=== PATIENT | male | born 1985 | race Hispanic/Latino ===

== ENCOUNTER 2020-12-16 12:03 | Inpatient (IN) | payer SELFPAY ==
[~2020-12-16 12:03] MED LIST: Iopamidol-370 76% 500 ML 1 ML ONE
[2020-12-16] MEDS ORDERED: Ondansetron PF 4 MG/2 ML Vial ONE (12:42)
[2020-12-16] MEDS ORDERED: Morphine 4 MG/ML VIAL ONE ×2 (12:48→14:33)
[2020-12-16 13:22] LABS: Hemoglobin 17.8 g/dL (14.0-18.0); Mean Corpuscular HGB CONC 37.1 g/dL (32.0-36.0); Mean Corpuscular Hemoglobin 32.7 pg (27.0-31.0); Mean Corpuscular Volume 88.1 fL (78.0-98.0); RBC Distribution Width 13.2 % (11.5-14.5); Red Blood Cell (RBC) Count 5.45 mill/uL (4.70-6.10); White Blood Cell (WBC) Count 16.8 thou/uL (4.8-10.8)
[2020-12-16 13:31] LABS: Band 21 % (5-11); Large Platelets SLIGHT; Lymphocytes 8 % (21-51); MDiff Complete? YES; Mean Platelet Volume 11.1 fL (7.4-10.4); Metamyelocyte 1 % (0-0); Monocytes 3 % (0-10); Neutrophil 67 % (42-75); Platelet Count 50 thou/uL (130-400); Platelet Morphology Comment Appears Decreased; RBC Morphology Normal
[2020-12-16] MEDS ORDERED: Piperacillin/Tazobactam 4.5 GM VIAL ONE (13:44)
--- NOTE | 2020-12-16 13:52 | CT ---
CT Abdomen Pelvis W Con: 12/16/2020 1:14 PM CLINICAL INFORMATION: Nausea vomiting and abdominal pain COMPARISON: Abdominal ultrasound 07/07/2020 TECHNIQUE: Multiple contiguous axial images were obtained and a CT of the abdomen and pelvis with IV contrast. C oronal and sagittal reformats were performed. FINDINGS: Lower Chest: within normal limits. Abdomen: Liver: Diffuse fatty liver Bile Ducts: Normal caliber. Gallbladder: No calcified gallstones. Normal caliber wall. Pancreas: Stranding changes are seen surrounding the pancreas consistent with acute pancreatitis. The stranding changes extend into the mesentery of the bowel. Normal enhancement of the pancreatic parenchyma is seen without evidence of necrosis. Spleen: within normal limits. Adrenals: within normal limits. Kidneys: within normal limits. Pelvis: Reproductive Organs: No pelvic masses. Ureters: within normal limits. Bladder: within normal limits. Peritoneum: A small amount of free fluid is seen in the pelvis. No free air. Bowel: Normal caliber. Mesentery and Retroperitoneum: Mildly prominent peripancreatic lymph nodes are seen. No enlarged retr operitoneal lymph nodes. Vessels: Normal. Abdominal Wall: within normal limits. Bones: Within normal limits IMPRESSION: 1. Acute pancreatitis 2. Fatty liver
[2020-12-16 13:56] LABS: Bilirubin 1+ (Negative); Blood, Urine Negative (Negative); Glucose, Urine (Dipstick) Normal (Negative); Ketone, Urine Negative (Negative); Leukocyte Negative Leu/uL (Negative); Nitrite Negative (Negative); Protein, Urine (Dipstick) 70 mg/dL (Neg-Trace); Specific Gravity, Urine 1.032 (1.002-1.036); Urobilinogen Normal mg/dL (Less than 2); pH, Urine 5.5 (5.0-9.0)
[2020-12-16 14:03] LABS: Clarity Hazy (Clear)
[2020-12-16 14:05] LABS: Bacteria/HPF Rare-Few HPF (None Seen); RBC/HPF 0-3 HPF (0-3); Squamous Epithelial 0-3 HPF (0-3); Transitional Epithelial 0-3 HPF (None Seen); WBC/HPF 0-3 HPF (0-3)
[2020-12-16] MEDS ORDERED: Morphine 4 MG/ML VIAL SLOW IVP PRN (14:23)
[2020-12-16] MEDS ORDERED: Vancomycin 1.5 GRAM/300 ML BAG 1.5 GM in Premix Bag 1 BAG IVPB SCH (14:30)
[2020-12-16] MEDS ORDERED: Sodium Chloride 0.9% 2,000 ML IV SCH (14:30)
--- NOTE | 2020-12-16 15:06 | ULT ---
US Gallbladder RUQ: 12/16/2020 1:59 PM CLINICAL HISTORY: Abdominal pain. STUDY: Limited right upper quadrant ultrasound of abdomen. COMPARISON: CT abdomen/pelvis 12/16/2020 FINDINGS: Liver: Size: Normal. Echogenicity: Hyperechoic consistent with hepatic steatosis. Contour: Smooth. Mass: None. A small amount of free fluid is seen in the abdomen. Bile ducts: No intrahepatic or extrahepatic biliary dilatation. Common bile duct measures 5 mm. Gallbladder: Normal. Pancreas: Not well visualized Right kidney: No pelvicalyceal dilatation. Right kidney measuring 11.2 cm in length. IMPRESSION: 1. Fatty liver 2. Trace ascites 3. The pancreas was not well visualized on this exam
[2020-12-16] MEDS ORDERED: HYDROmorphone 0.5 MG/0.5 ML SYRINGE ONE (15:45)
[2020-12-16] MEDS ORDERED: HUMULIN R 100 UNITS in Sodium Chloride 0.9% 100 ML IVPB SCH (16:15)
[2020-12-16] MEDS ORDERED: Dextrose 5%-Lactated Ringers 1,000 ML IV SCH (16:15)
[2020-12-16] MEDS ORDERED: Dextrose 5% in Water 1,000 ML IV PRN (16:17)
[2020-12-16 16:59] LABS: Cholesterol 786 mg/dL (< 200 Desired); Magnesium 1.3 mg/dL (1.6-2.6)
--- NOTE | 2020-12-16 16:59 | PDOC.HHP ---
Hospitalist HPI Abdominal pain History of Present Illness: Mr. Clint Shannon is a 35-year-old male with no past medical history who reports to the emergency room for abdominal pain. Patient reports that yesterday he developed severe epigastric abdominal pain associated with nausea and vomiting. Patient reports he is had subjective fevers and overall feels unwell. He has not been able to tolerate any solids, but has been able to tolerate small amounts of ice chips. He denies chest pain, shortness of breath. Denies melena hematochezia or hematemesis. Patient has vomited small amounts of bilious vomit, mostly nausea. Patient does report that he had one episode of this in May for which she went to an urgent care and was sent home. He does have a history of alcohol use, reports multiple drinks per week. He has no [facility] history of any other medical problems and no known family history of high triglyceride levels. In emergency room initial vital signs 126/91, 148, 22, 97.5, 94% on room air. WBC 16.8, H/H 17.8/48.0. Lactic acid 7.5, CTA showed acute pancreatitis without evidence of necrosis or pseudocyst. Right upper quadrant ultrasound showed normal gallbladder but was not able to visualize the pancreas well. EKG showed a prolonged QT interval to 514. Other lab values were unable to be analyzed by our laboratory due to extremely high triglyceride level. Patient received vancomycin, Zosyn, morphine, Dilaudid and 2 L of normal saline in the emergency room. Allergies/Adverse Reactions: Allergy/AdvReac Type Severity Reaction Status Date / Time No Known Allergies Allergy Verified 12/16/20 22:42 Home Medications: Medication Instructions Recorded Confirmed Type No Known 12/17/20 12/17/20 History Comments: No home medications Past History: PMHx: One episode of mild pancreatitis in May which was treated at urgent care PSHx: No surgical history FHx: Denies family history of cancer, hypertriglyceridemia or pancreatitis. Social: Lives at home with , does endorse to drinking multiple times per week denies smoking or drug use. Hospitalist NORM ROS Constitutional: reports: weakness, malaise. denies: fever, chills, sweats, other Eyes: denies: pain, vision change, conjunctivae inflammation, eyelid inflammation, redness, other ENT: denies: ear pain, ear discharge, nose pain, nose discharge, nose congestion, mouth pain, mouth swelling, throat pain, throat swelling, other Respiratory: denies: cough, dry, shortness of breath, hemoptysis, SOB with excertion, pleuritic pain, sputum, wheezing, other Cardiovascular: denies: chest pain, palpitations, orthopnea, paroxysmal noc. dyspnea, edema, light headedness, other Gastrointestinal: reports: nausea, vomiting, abdominal pain. denies: diarrhea, constipation, melena, hematochezia, other Genitourinary: denies: dysuria, frequency, incontinence, hematuria, retention, other Musculoskeletal: denies: neck pain, shoulder pain, arm pain, back pain, hand pain, leg pain, foot pain, other Skin: denies: rash, lesions, gladys, bruising, other Neurological: denies: weakness, numbness, incoordination, change in speech, confusion, seizures, other Hospitalist Exam General Appearance: NAD, awake alert, ill appearing Eye: PERRL, anicteric sclera ENT: normocephalic atraumatic, no oropharyngeal lesions, moist mucosa Neck: supple, symmetric, no JVD, no thyromegaly, no lymphadenopathy, no carotid bruit Heart: no murmur, no gallops, no rubs, normal peripheral pulses Heart - other findings: Tachycardic Respiratory: CTAB, no wheezes, no rales, no ronchi, normal chest expansion, no tachypnea, normal percussion Gastrointestinal: soft, non-tender, non-distended, normal bowel sounds, no palpable masses, no hepatomegaly, no splenomegaly, no bruit Extremities: no cyanosis, no clubbing, no edema Skin: normal turgor, no lesions, no rashes Neurological: cranial nerve grossly intact, normal sensation to touch, no weakness, no focal deficits, no new deficit Musculoskeletal: normal tone, normal strength, no muscle wasting Psychiatric: normal affect, normal behavior, A&O x 3 Hospitalist Results Result Diagrams: 12/17/20 10:55 12/18/20 03:44 Lab results: Laboratory Last Values WBC 16.8 thou/uL (4.8-10.8) H 12/16/20 12:44 RBC 5.45 mill/uL (4.70-6.10) 12/16/20 12:44 Hgb 17.8 g/dL (14.0-18.0) 12/16/20 12:44 Hct 48.0 % (42.0-52.0) 12/16/20 12:44 MCV 88.1 fL (78.0-98.0) 12/16/20 12:44 MCH 32.7 pg (27.0-31.0) H 12/16/20 12:44 MCHC 37.1 g/dL (32.0-36.0) H 12/16/20 12:44 RDW 13.2 % (11.5-14.5) 12/16/20 12:44 Plt Count 50 thou/uL (130-400) L 12/16/20 12:44 MPV 11.1 fL (7.4-10.4) H 12/16/20 12:44 Neutrophils % (Manual) 67 % (42-75) 12/16/20 12:44 Band Neuts % (Manual) 21 % (5-11) H 12/16/20 12:44 Lymphocytes % (Manual) 8 % (21-51) L 12/16/20 12:44 Monocytes % (Manual) 3 % (0-10) 12/16/20 12:44 Metamyelocytes % (Man) 1 % (0-0) H 12/16/20 12:44 Lymphocytes # Not Reportable 12/16/20 12:44 Large Platelets SLIGHT 12/16/20 12:44 Plt Morphology Comment Appears Decreased L 12/16/20 12:44 RBC Morph Comment Normal 12/16/20 12:44 POC Glucose 125 mg/dL (70-100) H 12/16/20 16:19 Lactic Acid 7.5 mmol/L (0.5-2.2) H* 12/16/20 13:39 Urine Color Mayra (Yellow) 12/16/20 13:21 Urine Clarity Hazy (Clear) 12/16/20 13:21 Urine pH 5.5 (5.0-9.0) 12/16/20 13:21 Ur Specific [place] 1.032 (1.002-1.036) 12/16/20 13:21 Urine Protein 70 mg/dL (Neg-Trace) A 12/16/20 13:21 Urine Glucose (UA) Normal mg/dL (Negative) 12/16/20 13:21 Urine Ketones Negative mg/dL (Negative) 12/16/20 13:21 Urine Blood Negative (Negative) 12/16/20 13:21 Urine Nitrite Negative (Negative) 12/16/20 13:21 Urine Bilirubin 1+ (Negative) A 12/16/20 13:21 Urine Urobilinogen Normal mg/dL (Less than 2) 12/16/20 13:21 Ur Leukocyte Esterase Negative Zuri/uL (Negative) 12/16/20 13:21 Urine RBC 0-3 HPF (0-3) 12/16/20 13:21 Urine WBC 0-3 HPF (0-3) 12/16/20 13:21 Ur Squamous Epith Cells 0-3 HPF (0-3) 12/16/20 13:21 Ur Transition Epith Cell 0-3 HPF (None Seen) A 12/16/20 13:21 Urine Bacteria Rare-Few HPF (None Seen) 12/16/20 13:21 Hyaline Casts 11-20 LPF (0-3) A 12/16/20 13:21 Hospitalist H&P A/P Plan: Acute pancreatitis 35-year-old male with minimal past medical history with singular bout of mild pancreatitis in May presents with abdominal pain found to have triglyceride levels that are interfering with laboratory assays. CT abdomen pelvis showed findings of acute pancreatitis with no evidence of necrosis or pseudocyst. WBC 16.8. Patient tachycardic to 120s even after 3 L of normal saline. Suspect severe acute pancreatitis secondary to hypertriglyceridemia. Will start on insulin drip, D5 LR at 200 cc/h and admit to ICU for close monitoring. Patient does also have a alcohol use history. Plan CCU monitoring Aggressive IV fluids D5 LR at 200 cc/h Start insulin drip q6h triglyceride levels q6hr BMP Stat calcium, magnesium, phosphorus Prolonged QT Patient with a prolonged QT interval to 514. No baseline for comparison. Suspect this may be secondary to patient's extremely elevated triglyceride level. Will empirically dose calcium since patient is also having muscle cramps. Stat calcium unable to be obtained secondary to lipids interfering with the laboratory assay. Will place on telemetry monitoring in CCU. Plan Empiric calcium gluconate Empiric magnesium gluconate Continue to draw labs until lipids no longer interfere with assay Close cardiac monitoring Lactic acidosis Patient with lactic acid level 7.5. WBC 16.8. Patient tachycardic with increased respiratory rate. Technically reading sepsis criteria, however low suspicion for infectious process as patient likely distributive shock picture secondary to acute pancreatitis. We will continue antibiotics for now and continue to trend. Plan IV Vanco, Zosyn Follow blood cultures Trend lactic acid, WBC, fever curve De-escalate antibiotics if patient improves Alcohol use disorder Patient with history of alcohol use. Reports multiple times a week to daily use. Last drink day prior to admission. Will place on ASE protocol and c ontinue thiamine, magnesium vitamin B12 folate. Plan ASE protocolthiamine Thrombocytopenia PLT level 50. Likely 2/2 etoh use. No signs of obvious bleeding at this time. Wi ll hold AC and continue to trend. DVT prophylaxisHold 2/2 PLTs Full code Case discussed with attending physician Dr. Walter.
[2020-12-16 17:00] LABS: HDL Cholesterol 9 mg/dL (>60 Neg Risk); Triglycerides 7634 mg/dL (Less than 150)
[2020-12-16 17:07] LABS: Lactic Acid 5.4 mmol/L (0.5-2.2)
[2020-12-16] MEDS ORDERED: INSULIN REGULAR IN 0.9 % NACL 100 UNIT/100 ML BAG ONE (17:07)
[2020-12-16] MEDS ORDERED: Thiamine HCl 200 MG/2 ML VIAL IM SCH (17:15)
[2020-12-16] MEDS ORDERED: Calcium Gluconate 4.6 MEQ in Sodium Chloride 0.9% 100 ML IVPB SCH (17:17)
[2020-12-16 17:26] LABS: Base Excess-Venous -5.5 mmol/L (-2.0 to 3.0); Bicarbonate (HCO3v) 20.7 mmol/L (22.0-28.0); CO2 Tension (PvCO2) 41.9 mmHg (40.0-50.0); Calcium, Ionized 0.51 mmol/L (1.15-1.33); Chloride 105 mmol/L (98-107); Hemoglobin - Calc 18.8 g/dL (14.0-18.0); Potassium 5.9 mmol/L (3.5-5.1); Sodium 132 mmol/L (138-145); vO2 Saturation-calc 98.9 % (60.0-85.0)
[2020-12-16 17:27] LABS: SARS-CoV-2 NAA Rapid Test DETECTED (NotDetected)
[2020-12-16] MEDS ORDERED: Magnesium 2 GM/50 ML 2 GM in Premix Bag 1 BAG IVPB SCH (17:30)
[2020-12-16] MEDS ORDERED: Calcium Chloride 1 GM/10 ML Abboject SYRINGE IVP SCH (17:45)
[2020-12-16 18:01] LABS: Chloride 107 mmol/L (98-107); Potassium 5.5 mmol/L (3.5-5.1); Sodium 140 mmol/L (136-145)
[2020-12-16 18:02] LABS: Albumin 2.5 g/dL (3.5-5.0); Anion Gap 22 mmol/L (10-20); BUN (Urea Nitrogen) 10 mg/dL (8.9-20.6); Bilirubin, Total 1.6 mg/dL (0.2-1.2); Calc. Creatinine Clearance 0 mL/min (70-130); Carbon Dioxide 17 mmol/L (22-29); Globulin 2.8 g/dL (2.4-3.5); Glucose 118 mg/dL (70-105); Protein, Total 5.3 g/dL (6.0-8.3)
[2020-12-16 18:03] LABS: ALT (SGPT) 100 U/L (8-55); AST (SGOT) 134 U/L (5-34); Alkaline Phosphatase 133 U/L (40-110); Lipase 552 U/L (8-78)
[2020-12-16 18:07] LABS: Calcium 4.1 mg/dL (7.8-10.44)
[2020-12-16 18:43] LABS: Anion Gap 15 mmol/L (10-20); BUN (Urea Nitrogen) 8 mg/dL (8.9-20.6); Calc. Creatinine Clearance 0 mL/min (70-130); Calcium 4.8 mg/dL (7.8-10.44); Carbon Dioxide 21 mmol/L (22-29); Chloride 96 mmol/L (98-107); Glucose 105 mg/dL (70-105); Potassium 5.1 mmol/L (3.5-5.1); Sodium 127 mmol/L (136-145)
[2020-12-16 19:34] LABS: Triglycerides 6153 mg/dL (Less than 150)
[2020-12-16 20:16] LABS: Alcohol 54 mg/dL (Less than 10)
[2020-12-16] MEDS ORDERED: Dextrose 50% Abboject 50 ML SYRINGE ONE (20:26)
[2020-12-16] MEDS ORDERED: Lorazepam 2 MG/ML VIAL SLOW IVP PRN (22:08)
[2020-12-16] MEDS ORDERED: Sodium Chloride 0.9% 1,000 ML IV SCH (22:15)
[2020-12-16] MEDS ORDERED: Dextrose 5 % And 0.9 % NaCl 1,000 ML IV SCH (22:15)
[2020-12-16] MEDS ORDERED: Diazepam 5 MG TAB PO PRN (22:23)
[2020-12-16] MEDS: Dextrose 50% Abboject 50 ML SYRINGE SLOW IVP PRN (22:24)
[2020-12-16] MEDS: Piperacillin/Tazobactam 4.5 GM in Sodium Chloride 0.9% 100 ML IVPB SCH (22:27)
[2020-12-16] MEDS: Ondansetron PF 4 MG/2 ML Vial IVP PRN (22:29)
[2020-12-16] MEDS ORDERED: Diazepam 5 MG TAB PO SCH (22:30)
[2020-12-17] MEDS ORDERED: Dextrose 50% Abboject 50 ML SYRINGE ONE ×2 (00:13→02:23)
[2020-12-17] MEDS ORDERED: Sodium Chloride 0.9% 1,000 ML IV SCH (01:30)
[2020-12-17 01:41] LABS: Anion Gap 19 mmol/L (10-20); BUN (Urea Nitrogen) 7 mg/dL (8.9-20.6); Calc. Creatinine Clearance 164 mL/min (70-130); Carbon Dioxide 16 mmol/L (22-29); Chloride 108 mmol/L (98-107); Potassium 3.7 mmol/L (3.5-5.1); Sodium 139 mmol/L (136-145)
[2020-12-17 01:42] LABS: Glucose 60 mg/dL (70-105)
[2020-12-17 01:47] LABS: Calcium 5.3 mg/dL (7.8-10.44)
[2020-12-17] MEDS ORDERED: Calcium Gluconate 9.2 MEQ in Sodium Chloride 0.9% 100 ML IVPB SCH (02:02)
[2020-12-17] MEDS ORDERED: Sodium Bicarbonate 150 MEQ in Dextrose 5% in Water 1,000 ML IV SCH (02:15)
[2020-12-17 02:31] LABS: Glucose 37 mg/dL (70-105)
[2020-12-17] MEDS: Dextrose 5%-Lactated Ringers 1,000 ML IV SCH ×5 (03:35→21:02)
[2020-12-17 03:44] LABS: Glucose 50 mg/dL (70-105)
[2020-12-17] MEDS: Dextrose 50% Abboject 50 ML SYRINGE SLOW IVP PRN ×3 (03:45→08:49)
[2020-12-17] MEDS ORDERED: Diazepam 5 MG TAB PO PRN (04:00)
[2020-12-17] MEDS: Piperacillin/Tazobactam 4.5 GM in Sodium Chloride 0.9% 100 ML IVPB SCH ×4 (04:34→21:02)
[2020-12-17 06:39] LABS: ALT (SGPT) 71 U/L (8-55); AST (SGOT) 99 U/L (5-34); Albumin 2.1 g/dL (3.5-5.0); Alkaline Phosphatase 116 U/L (40-110); Anion Gap 14 mmol/L (10-20); BUN (Urea Nitrogen) 6 mg/dL (8.9-20.6); Bilirubin, Total 2.4 mg/dL (0.2-1.2); Calc. Creatinine Clearance 142 mL/min (70-130); Calcium 5.8 mg/dL (7.8-10.44); Carbon Dioxide 10 mmol/L (22-29); Chloride 102 mmol/L (98-107); Globulin 4.1 g/dL (2.4-3.5); Glucose 41 mg/dL (70-105); Magnesium 1.2 mg/dL (1.6-2.6); Potassium 3.5 mmol/L (3.5-5.1); Protein, Total 6.2 g/dL (6.0-8.3); Sodium 122 mmol/L (136-145)
[2020-12-17 08:20] LABS: Glucose 244 mg/dL (70-105)
[2020-12-17] MEDS: Ondansetron PF 4 MG/2 ML Vial IVP PRN ×2 (08:29→10:27)
[2020-12-17] MEDS: Thiamine 100 MG TAB PO SCH ×2 (08:30→10:05)
[2020-12-17] MEDS: Multivitamin W/ Minerals 1 TAB PO SCH ×2 (08:30→10:05)
[2020-12-17] MEDS: Magnesium Oxide 400 MG TAB PO SCH ×2 (08:30→10:05)
[2020-12-17] MEDS: Folic Acid 1 MG TAB PO SCH ×2 (08:30→09:53)
[2020-12-17 09:23] LABS: #Lymphocytes 1.4 thou/uL (1.20-3.40); #Monocytes 0.7 thou/uL (0.11-0.59); #Neutrophils 9.9 thou/uL (1.40-6.50); %Basophils 0.4 % (0.0-1.0); %Eosinophils 0.3 % (0.0-10.0); %Lymphocytes 11.8 % (21.0-51.0); %Monocytes 5.5 % (0.0-10.0); Hemoglobin 13.3 g/dL (14.0-18.0); Mean Corpuscular HGB CONC 34.7 g/dL (32.0-36.0); Mean Corpuscular Hemoglobin 31.9 pg (27.0-31.0); Mean Corpuscular Volume 91.8 fL (78.0-98.0); Mean Platelet Volume 14.4 fL (7.4-10.4); Platelet Count 29 thou/uL (130-400); RBC Distribution Width 13.1 % (11.5-14.5); Red Blood Cell (RBC) Count 4.17 mill/uL (4.70-6.10)
--- NOTE | 2020-12-17 09:28 | PDOC.HOSPP ---
- Subjective Encounter Date: 12/17/20 Encounter Time: 09:20 Subjective: f/u severe pancreatitis due to hypertriglyceridemia on prior insulin gtt and COVID +. Receiving IVF's but hypoglycemic this am per nursing with d/c of insulin gtt. Hx of ETOH abuse on ASE protocol. - Objective Vital Signs & Weight: Vital Signs (12 hours) Temp 12/17/20 00:00 97.6 F Weight Weight 178 lb 9.191 oz Most Recent Monitor Data Heart Rate from ECG 124 NIBP 125/94 NIBP BP-Mean 104 Respiration from ECG 31 SpO2 96 I&O: 12/16/20 12/17/20 12/18/20 06:59 06:59 06:59 Output Total 200 Balance -200 Result Diagrams: 12/17/20 07:39 12/17/20 07:39 Additional Labs: Accuchecks 12/17/20 12/17/20 12/17/20 07:45 06:37 05:13 POC Glucose 176 H 80 70 12/17/20 12/17/20 12/17/20 04:09 02:37 01:29 POC Glucose 127 H 154 H 76 12/17/20 12/16/20 12/16/20 00:25 23:12 22:37 POC Glucose 199 H 125 H 180 H 12/16/20 12/16/20 12/16/20 22:20 20:58 20:04 POC Glucose 64 L 210 H 72 12/16/20 12/16/20 19:04 16:19 POC Glucose 101 H 125 H Laboratory Tests 12/16/20 12/16/20 12/16/20 14:25 16:10 16:17 Sodium 140 Glucose Magnesium 1.3 L Albumin Triglycerides 7634 H Lipase 552 H Plasma Alcohol Influenza A RNA INAAT Not Detected Influenza B RNA INAAT Not Detected SARS-CoV-2 Rap RNA(RT-PCR) DETECTED A* 12/16/20 12/16/20 12/16/20 17:19 22:44 23:57 Sodium 127 L 139 Glucose 60 L Magnesium Albumin Triglycerides 6153 H Greater than 3800 H Lipase Plasma Alcohol 54 H Influenza A RNA INAAT Influenza B RNA INAAT SARS-CoV-2 Rap RNA(RT-PCR) 12/17/20 12/17/20 12/17/20 02:07 03:15 03:15 Sodium Glucose 37 L* 50 L* Magnesium Albumin Triglycerides Greater than 3800 H Lipase Plasma Alcohol Influenza A RNA INAAT Influenza B RNA INAAT SARS-CoV-2 Rap RNA(RT-PCR) 12/17/20 12/17/20 05:45 05:45 Sodium Glucose 41 L* Magnesium 1.2 L Albumin 2.1 L Triglycerides 3169 H Lipase Plasma Alcohol Influenza A RNA INAAT Influenza B RNA INAAT SARS-CoV-2 Rap RNA(RT-PCR) Radiology Reviewed by me: Yes (CT abd/pel - pancreatitis with stranding, no CBD obstruction) EKG Reviewed by me: Yes (Tele - Sinus tach in 130's) Hospitalist ROS - Medication Medications: Active Medications Generic Name Dose Route Start Last Admin Trade Name Freq PRN Reason Stop Dose Admin Dextrose/Water 25 gm 12/16/20 16:17 12/17/20 08:49 Dextrose 50% Abboject 50 Ml Syringe SLOW IVP 25 gm PRN PRN Administration Hypoglycemia Diazepam 5 mg 12/17/20 04:00 12/17/20 08:30 Diazepam 5 Mg Tab PO 5 mg Q4H PRN Administration FOR ASE 10 OR GREATER Folic Acid 1 mg 12/17/20 09:00 12/17/20 08:30 Folic Acid 1 Mg Tab PO 1 mg DAILY LISSET Administration Piperacillin Sod/Tazobactam 100 mls @ 200 mls/hr 12/16/20 20:00 12/17/20 08:30 Sod 4.5 gm/ Sodium Chloride IVPB 100 mls 0200,0800,1400,2000 LISSET Administration Insulin Human Regular 100 101 mls @ 0 mls/hr 12/16/20 16:15 12/17/20 07:58 units/ Sodium Chloride IVPB 6 mls INF LISSET Administration Protocol Titrate Dexmedetomidine HCl 400 mcg/ 100 mls @ 0 mls/hr 12/16/20 23:00 12/17/20 07:58 Sodium Chloride IVPB 100 mls INF LISSET Administration Protocol Per Protocol Dextrose/Lactated Ringer's 1,000 mls @ 200 mls/hr 12/17/20 02:15 12/17/20 07:54 D5 Lr IV 1,000 mls .Q5H LISSET Administration Iron/Minerals/Multivitamins 1 tab 12/17/20 09:00 12/17/20 08:30 Multivitamin W/ Minerals 1 Tab PO 1 tab DAILY LISSET Administration Lorazepam 2 mg 12/16/20 22:08 12/16/20 22:33 Lorazepam 2 Mg/Ml Vial SLOW IVP 2 mg Q20M PRN Administration tremors, tachycardia, CIWA > 8 Magnesium Oxide 400 mg 12/17/20 09:00 12/17/20 08:30 Magnesium Oxide 400 Mg Tab PO 400 mg DAILY LISSET Administration Ondansetron HCl 4 mg 12/16/20 14:23 12/17/20 08:29 Ondansetron Pf 4 Mg/2 Ml Vial IVP 4 mg Q6H PRN Administration Nausea/Vomiting Thiamine HCl 100 mg 12/17/20 09:00 12/17/20 08:30 Thiamine 100 Mg Tab PO 100 mg DAILY LISSET Administration Hospitalist Exam Vitals: Vital Signs (12 hours) Temp 12/17/20 00:00 97.6 F Weight Weight 178 lb 9.191 oz Most Recent Monitor Data Heart Rate from ECG 124 NIBP 125/94 NIBP BP-Mean 104 Respiration from ECG 31 SpO2 96 General Appearance: awake alert, ill appearing Eye: PERRL, anicteric sclera, scleral icterus ENT: normocephalic atraumatic, no oropharyngeal lesions Neck: supple, symmetric, no JVD, no thyromegaly, no lymphadenopathy Heart: no gallops, no rubs, normal peripheral pulses Heart - other findings: S1, S2 tachycardic Respiratory: tachypneic Hosp A/P (1) Acute pancreatitis Code(s): K85.90 - ACUTE PANCREATITIS WITHOUT NECROSIS OR INFECTION, UNSP Status: Acute Plan: Likely due to ETOH/Triglyceridemia, continue IVF's, resume Insulin gtt, consult GI servcie, NPO except ice chips, start Tricor (2) Hypertriglyceridemia Code(s): E78.1 - PURE HYPERGLYCERIDEMIA Status: Acute Plan: Severe elevation improved with insulin gtt, serial monitoring, start Tricor (3) COVID-19 Code(s): U07.1 - COVID-19 Status: Acute Plan: Start Dexamethasone, add Zinc/D3/Vit C, Isolation protocol, consider Remdesivir (4) Sepsis Code(s): A41.9 - SEPSIS, UNSPECIFIED ORGANISM Status: Acute Plan: Sepsis criteria likely related to pancreatitis, empiric Zosyn (5) Thrombocytopenia Code(s): D69.6 - THROMBOCYTOPENIA, UNSPECIFIED Status: Acute Plan: ? lab error, repeat platelets and monitor trend, avoid anticoagulation/an tiplatelet agents (6) Hyponatremia Code(s): E87.1 - HYPO-OSMOLALITY AND HYPONATREMIA Status: Acute Plan: Likely dilutional in conjunction wtih ETOH use, serial monitoring (7) Alcohol abuse Code(s): F10.10 - ALCOHOL ABUSE, UNCOMPLICATED Status: Acute Plan: ASE protocol, Valium, Precedex, MVI/Thiamine/Folate - Plan continue antibiotics, social science research assistant, respiratory therapy, DVT proph w/SCDs Continue critical support Continue D5LR IVF's Hold Insulin gtt due to hypoglycemia Start Dexamethasone Add Vit C/D3/Zinc Continue Zosyn Consult GI service AM Lab: CMP, CBC, Lipase Serial Triglycerides
[2020-12-17] MEDS ORDERED: Pantoprazole 40 MG VIAL IVP SCH (10:00)
[2020-12-17] MEDS ORDERED: Dexamethasone 4 mg/ml Vial SLOW IVP SCH (10:00)
[2020-12-17 10:02] LABS: Glucose 112 mg/dL (70-105)
[2020-12-17] MEDS ORDERED: Fenofibrate Nanocrystallized 145 MG TAB PO SCH (10:15)
--- NOTE | 2020-12-17 10:45 | CON ---
DATE OF CONSULTATION: 12/17/2020 CONSULTING PHYSICIAN: Hospitalist group. REASON FOR CONSULTATION: Critical care management. HISTORY OF PRESENT ILLNESS: The patient is a 35-year-old Spanish male who is admitted for treatment of pancreatitis induced by alcohol and triglycerides. He says he drinks about 6 beers per day and occasionally Tequila. He was admitted for abdominal pain, nausea and vomiting. He was found to have a lipase over 500 and extremely elevated triglyceride level. He has been placed in ICU and started on IV fluids. He is on a Precedex drip for alcohol withdrawal symptoms. He tells me he feels better today compared to last night. PAST MEDICAL HISTORY: He has had pancreatitis one episode in the past. PAST SURGICAL HISTORY: Unremarkable. FAMILY MEDICAL HISTORY: Unremarkable. ALLERGIES: NONE. MEDICATIONS: Prior to admission, none. SOCIAL HISTORY: Drinking history as outlined above. He occasionally smokes. He does not use any illicit drugs. 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 REVIEW OF SYSTEMS: Twelve-point review of system was negative. PHYSICAL EXAMINATION: VITAL SIGNS: Temperature 97.6, pulse in the 130s, blood pressure 125/94. The patient is 5 feet 4 inches. Weight is 178 pounds. BMI is 30.7. GENERAL: He appears in no acute distress. HEENT: Pupils reactive. Sclerae icteric. Oropharynx clear. NECK: No adenopathy or JVD. LUNGS: Clear. CARDIAC: S1 and S2. Tachycardic. ABDOMEN: Somewhat distended. Mildly tender to palpation. No rebound. EXTREMITIES: No clubbing, cyanosis, or edema. LABORATORY DATA: White blood cell count 12, hematocrit 38.3, and platelet count 29. Venous gas: PH 7.30, pCO2 of 42, PO2 of 142. Sodium 122, potassium 3.5, chloride 102, CO2 of 10, BUN 6, creatinine 0.8, last glucose 166. AST 99, ALT 71, alkaline phosphatase 116, triglycerides 3169, anion gap is 14. COVID test is positive. Ultrasound and CT do not show any acute findings in the pancreas. ASSESSMENT: 1. Pancreatitis-alcohol/triglyceride induced. 2. COVID infection. 3. Alcohol abuse. 4. Alcohol withdrawal symptoms. PLAN: 1. Agree with hydration. 2. Calcium has been replaced. 3. Follow electrolytes closely. 4. He has been started on Decadron for his COVID. 5. Would avoid heparinoid products because of his thrombocytopenia. 6. Follow electrolytes closely. 7. Check a chest x-ray to make sure he does not have pneumonia. Job ID: [id number]
[2020-12-17 11:12] LABS: Hemoglobin 13.3 g/dL (14.0-18.0); Platelet Count 29 thou/uL (130-400)
[2020-12-17 11:16] LABS: Glucose 135 mg/dL (70-105)
--- NOTE | 2020-12-17 12:12 | RAD ---
Chest one view HISTORY: Pneumonia. FINDINGS: No comparison. Cardiac silhouette is magnified by projection. Pulmonary vasculature upper l imits of normal and accentuated by shallow inspiration. Subtle ill-defined groundglass opacities project over each posterior lung base, the superior segment left lower lobe, and to the anterior segment right upper lobe. No lobar consolidation or evidence of pneumothorax. IMPRESSION : Subtle patchy bilateral groundglass infiltrates. Correlate for multifocal viral pneumonitis
[2020-12-17 12:24] LABS: Glucose 150 mg/dL (70-105)
[2020-12-17] MEDS ORDERED: HUMULIN R 100 UNITS in Sodium Chloride 0.9% 100 ML IVPB SCH (13:30)
[2020-12-17 13:31] VITALS: BMI 30.6
[2020-12-17] MEDS ORDERED: Electrolyte Replacement Protocol FS PRN (13:45)
[2020-12-17 13:49] LABS: Glucose 147 mg/dL (70-105)
[2020-12-17] MEDS ORDERED: Magnesium Sulfate 4 GM in Sodium Chloride 0.9% 250 ML 250 ML IVPB SCH (14:15)
[2020-12-17] MEDS ORDERED: Potassium Chloride 40 MEQ in Sodium Chloride 0.9% 250 ML 250 ML IVPB SCH (14:15)
[2020-12-17 16:45] LABS: Base Excess (BEa) -5.7 mEq/L (-2.0 to +3.0); CO2 Tension 29.9 mmHg (35.0-45.0); Calcium, Ionized (arterial) 0.84 mmol/L (1.12-1.30); Carboxyhemoglobin (COHb) 0.2 gm% (0.0-3.0); Hemoglobin (Hb) 12.5 g/dL (14.0-18.0); O2 Tension (PaO2), arterial 67.6 mmHg (80.0-100.0); Potassium - ABG Lab 3.62 mmol/L (3.70-5.30); Puncture Site RBA
[2020-12-17 16:46] LABS: ALV-art Gradient 180.225 mmHg (0-20)
[2020-12-17] MEDS ORDERED: Lorazepam 2 MG/ML VIAL SLOW IVP SCH (17:00)
[2020-12-17] MEDS: Pantoprazole 40 MG VIAL IVP SCH (21:03)
[2020-12-17] MEDS: Cholecalciferol 1,000 UNITS (25 MCG) TAB PO SCH (21:03)
--- NOTE | 2020-12-17 21:59 | CON ---
DATE OF CONSULTATION: 12/17/2020 REASON FOR CONSULTATION: Acute pancreatitis. CONSULTING PROVIDER: Dr. Avinash Hernandez. HISTORY OF PRESENT ILLNESS: The patient is a 35-year-old male with no significant past medical history, although there was some mention of possible pancreatitis in mid 2019 presenting with complaints of abdominal pain. He states that he was in his usual state of health until approximately 4 to 5 days ago when he had the acute onset of increased pressure type sensation in the midepigastric region, was nonradiating, was constant with waxing/waning severity, and reached a severity of 10/10. This was associated with increased nausea and vomiting with nonbloody emesis, subjective fevers, and chills. With the increased abdominal pain and the inability to tolerate p.o. subsequently brought him to [facility] for further evaluation. While in the ER, he was noted to have a significantly elevated lipase level, but also significantly elevated triglyceride level as part of the workup related to the cause of the pancreatitis. He was subsequently transferred to the ICU for further evaluation. During my interview with the patient, he states that his abdominal pain has significantly increased to now no pain with the current pain medication regimen. He states that he no longer has any vomiting episodes, but does continue to have some mild nausea. Currently, he denies any hematemesis, melena, hematochezia, dysphagia, odynophagia, diarrhea, constipation. He did have approximately 5 pounds weight loss prior to admission that was unintentional. Upon chart review, on questioning the patient he states that in May of 2020, he did have an episode of increased midepigastric pain for which he was seen in the [facility], but was ultimately sent home when comparing the abdominal pain from this admission to that evaluation at [facility] he said that they were very similar. REVIEW OF SYSTEMS: A 10-category review of systems was obtained with all responses negative except for the pertinent positives as listed in HPI. PAST MEDICAL HISTORY: None. PAST SURGICAL HISTORY: None. FAMILY HISTORY: Denies any GI malignancies or pancreatic abnormalities. SOCIAL HISTORY: Drinks approximately two to six beers, approximately two to three times per week. Denies any tobacco or illicit drug use. OUTPATIENT MEDICATIONS: None. ALLERGIES: NO KNOWN DRUG ALLERGIES. PHYSICAL EXAMINATION: VITAL SIGNS: Temperature 98.5, pulse 117, blood pressure 140/95, respiratory rate 16, saturating 99% on high-flow oxygen. GENERAL: The patient was lying in bed, in no acute distress. Alert and oriented x4. He is primarily Malay speaking. HEENT: Normocephalic, atraumatic. NECK: Supple. No JVD or scleral icterus noted. CARDIOVASCULAR: Tachycardic rate, but regular rhythm. No discernible murmurs, gallops, or rubs. RESPIRATORY: Clear to auscultation bilaterally with no discernible wheezes or rales. ABDOMEN: Hypoactive bowel sounds. Soft. Mild abdominal distention. Tenderness to palpation in the midepigastric and left upper quadrant. EXTREMITIES: No cyanosis, clubbing, or edema. LABORATORY DATA: CBC with a white blood cell count of 12, hemoglobin 13.3, hematocrit 39.1, platelets 29. Chemistry with a sodium of 122, potassium 3.5, chloride 102, CO2 of 10, BUN 6, creatinine 0.83, glucose 41, AST 99, ALT 71, alkaline phosphatase 116, total bilirubin 2.4, albumin 2.1, triglycerides 1424, lipase 502. IMAGING DATA: CT of the abdomen and pelvis was obtained on December 16, 2020, which showed diffuse fatty liver in addition to stranding change around the pancreas without evidence of pancreatic necrosis. There was mild prominent peripancreatic lymph nodes noted on the CT as well. He also underwent a right upper quadrant ultrasound on December 16, which showed hyperechoic parenchyma of the liver consistent with steatosis. There was no evidence of intra or extrahepatic dilatation with the common bile duct measuring 5 mm in size. Trace ascites was also seen during that examination. ASSESSMENT AND PLAN: The patient is a 35-year-old male with past medical history of possible pancreatitis in May of 2020 now presenting with acute pancreatitis secondary to either alcohol abuse or hypertriglyceridemia. Acute pancreatitis. The patient is presenting with acute onset of midepigastric abdominal pain approximately 5 days ago and associated with increased nausea, vomiting (with nonbloody emesis), subjective fevers and chills. On admission, the patient was tachycardic, but normotensive and had both imaging and laboratory findings consistent with acute pancreatitis. However, in terms of the origin of his pancreatitis, he does endorse a significant alcohol abuse history with binge drinking episodes occurring weekly, but he also had a triglyceride level of over 7000 on admission, which could also contribute to acute pancreatitis. At this time and based on his reaction to IV fluids and insulin administration thus far, I would favor his hypertriglyceridemia as the driving force behind his acute pancreatitis. At this time, he has received a significant amount of fluid as part of resuscitative effort for acute pancreatitis, but continues to have significant tachycardia and likely third spacing a fair amount of this fluid. He also does have a significant hyponatremia, but has been variable over the last few lab draws concerning for lab error or drawing from the IV line itself. 1. Recommendations: a. We will continue aggressive IV fluid resuscitation as you are doing, but consider decreasing to 150 mL/h tomorrow or if the patient started to develop fluid overload/lower extremity edema. b. Pain control per primary team. c. Would continue insulin drip for probable hypertriglyceridemia induced acute pancreatitis. d. The patient is exhibiting increased thirst and hunger and starting him on a clear liquid diet would be prudent even in severe acute pancreatitis. e. No endoscopic intervention is indicated at this time given the high likelihood of either alcohol or hypertriglyceridemia as a possible cause of pancreatitis. COVID infection. The patient is presenting with acute pancreatitis, but during routine laboratory testing, the patient was detected was seen to be positive for COVID-19 virus. Currently, doing well with his respiratory status, although he is on high-flow oxygen making it difficult to assess his pulmonary function. On physical exam today, he does have fairly clear findings. Pulmonary Critical Care is currently following with the patient and would defer further management for the patient. 1. Recommendations: a. Would continue Decadron for treatment as part of his comorbid but monitoring of blood sugars in light of insulin drip would be prudent to defer. b. Pulmonary Service for further treatment of COVID-19 virus. c. We will continue to follow please call with any questions. Job ID: [id number]
[2020-12-18 04:19] LABS: ALT (SGPT) 61 U/L (8-55); AST (SGOT) 107 U/L (5-34); Albumin 2.1 g/dL (3.5-5.0); Alkaline Phosphatase 93 U/L (40-110); Anion Gap 12 mmol/L (10-20); BUN (Urea Nitrogen) 4 mg/dL (8.9-20.6); Bilirubin, Total 4.1 mg/dL (0.2-1.2); Calc. Creatinine Clearance 179 mL/min (70-130); Carbon Dioxide 18 mmol/L (22-29); Chloride 105 mmol/L (98-107); Globulin 2.9 g/dL (2.4-3.5); Glucose 127 mg/dL (70-105); Potassium 3.6 mmol/L (3.5-5.1); Sodium 131 mmol/L (136-145); Triglycerides 609 mg/dL (Less than 150)
[2020-12-18 04:23] LABS: Calcium 5.6 mg/dL (7.8-10.44)
[2020-12-18] MEDS: Dextrose 5%-Lactated Ringers 1,000 ML IV SCH ×4 (05:00→20:15)
[2020-12-18] MEDS: Piperacillin/Tazobactam 4.5 GM in Sodium Chloride 0.9% 100 ML IVPB SCH ×3 (05:13→20:12)
[2020-12-18] MEDS ORDERED: Dexamethasone 4 mg/ml Vial SLOW IVP SCH (09:00)
[2020-12-18] MEDS ORDERED: Fenofibrate Nanocrystallized 145 MG TAB PO SCH (09:00)
[2020-12-18] MEDS ORDERED: Ascorbic Acid 500 mg Chewable Tablet PO SCH (09:00)
[2020-12-18] MEDS ORDERED: Zinc Sulfate 220 MG CAP PO SCH (09:00)
[2020-12-18] MEDS: Multivitamin W/ Minerals 1 TAB PO SCH (09:15)
[2020-12-18] MEDS: Folic Acid 1 MG TAB PO SCH (09:15)
[2020-12-18] MEDS: Magnesium Oxide 400 MG TAB PO SCH (09:16)
[2020-12-18] MEDS: Thiamine 100 MG TAB PO SCH (09:16)
[2020-12-18] MEDS: Pantoprazole 40 MG VIAL IVP SCH ×2 (09:17→20:14)
--- NOTE | 2020-12-18 09:27 | PDOC.HOSPP ---
- Subjective Encounter Date: 12/18/20 Encounter Time: 09:05 Subjective: f/u for acute pancreatitis/hypertriglyceridemia/ETOH abuse/COVID-19 on high flow O2. Tolerating clear liquids currently and remained stable overnight per nursing. - Objective Vital Signs & Weight: Vital Signs (12 hours) Temp Pulse Ox 12/18/20 06:25 96 12/18/20 06:00 98.5 F 12/18/20 02:01 97 12/18/20 00:00 98.5 F 12/17/20 22:10 97 Weight Admit Weight 178 lb 9.12 oz Weight 178 lb 9.191 oz Most Recent Monitor Data Heart Rate from ECG 90 NIBP 93/57 NIBP BP-Mean 69 Respiration from ECG 25 SpO2 94 I&O: 12/17/20 12/18/20 12/19/20 06:59 06:59 06:59 Intake Total 7831.8 Output Total 200 1110 Balance -200 6721.8 Result Diagrams: 12/17/20 10:55 12/18/20 03:44 Additional Labs: Accuchecks 12/18/20 12/18/20 12/18/20 07:59 06:33 04:21 POC Glucose 113 H 124 H 123 H 12/18/20 12/17/20 12/17/20 02:27 23:53 21:17 POC Glucose 119 H 136 H 114 H 12/17/20 12/17/20 12/17/20 19:41 18:08 17:10 POC Glucose 159 H 141 H 126 H 12/17/20 12/17/20 12/17/20 16:08 15:03 14:09 POC Glucose 129 H 149 H 161 H 12/17/20 12/17/20 10:51 09:03 POC Glucose 140 H 166 H Microbiology 12/16/20 13:46 Venous blood - Right Arm Blood Culture - Preliminary Specimen has been received and culture in progress. No Growth to date. 12/16/20 13:46 Venous blood - Left Arm Blood Culture - Preliminary Specimen has been received and culture in progress. No Growth to date. Laboratory Tests 12/16/20 12/16/20 12/16/20 14:25 16:10 16:17 Plt Count Sodium 140 Glucose Magnesium 1.3 L Albumin Triglycerides 7634 H Lipase 552 H Plasma Alcohol Influenza A RNA INAAT Not Detected Influenza B RNA INAAT Not Detected SARS-CoV-2 Rap RNA(RT-PCR) DETECTED A* 12/16/20 12/16/20 12/16/20 17:19 22:44 23:57 Plt Count Sodium 127 L 139 Glucose 60 L Magnesium Albumin Triglycerides 6153 H Greater than 3800 H Lipase Plasma Alcohol 54 H Influenza A RNA INAAT Influenza B RNA INAAT SARS-CoV-2 Rap RNA(RT-PCR) 12/17/20 12/17/20 12/17/20 02:07 03:15 03:15 Plt Count Sodium Glucose 37 L* 50 L* Magnesium Albumin Triglycerides Greater than 3800 H Lipase Plasma Alcohol Influenza A RNA INAAT Influenza B RNA INAAT SARS-CoV-2 Rap RNA(RT-PCR) 12/17/20 12/17/20 12/17/20 05:45 05:45 07:39 Plt Count 29 L* Sodium Glucose 41 L* Magnesium 1.2 L Albumin 2.1 L Triglycerides 3169 H Lipase Plasma Alcohol Influenza A RNA INAAT Influenza B RNA INAAT SARS-CoV-2 Rap RNA(RT-PCR) 12/17/20 12/17/20 12/17/20 09:28 10:55 12:02 Plt Count Sodium Glucose Magnesium Albumin Triglycerides 1939 H 1424 H Lipase 502 H Plasma Alcohol Influenza A RNA INAAT Influenza B RNA INAAT SARS-CoV-2 Rap RNA(RT-PCR) 12/18/20 03:44 Plt Count Sodium Glucose Magnesium Albumin Triglycerides 609 H Lipase Plasma Alcohol Influenza A RNA INAAT Influenza B RNA INAAT SARS-CoV-2 Rap RNA(RT-PCR) Radiology Reviewed by me: Yes (PCXR - multifocal infiltrates) EKG Reviewed by me: Yes (Tele - SR) Hospitalist ROS - Medication Medications: Active Medications Generic Name Dose Route Start Last Admin Trade Name Freq PRN Reason Stop Dose Admin Ascorbic Acid 1,000 mg 12/18/20 09:00 12/18/20 09:15 Ascorbic Acid 500 Mg Chewable Tablet PO 1,000 mg DAILY LISSET Administration Cholecalciferol 1,000 units 12/17/20 21:00 12/17/20 21:03 Cholecalciferol 1,000 Units (25 Mcg) Tab PO 1,000 units HS LISSET Administration Dexamethasone 6 mg 12/18/20 09:00 12/17/20 10:28 Dexamethasone 4 Mg/Ml Vial SLOW IVP 6 mg DAILY LISSET Administration Dextrose/Water 25 gm 12/16/20 16:17 12/17/20 08:49 Dextrose 50% Abboject 50 Ml Syringe SLOW IVP 25 gm PRN PRN Administration Hypoglycemia Folic Acid 1 mg 12/17/20 09:00 12/18/20 09:15 Folic Acid 1 Mg Tab PO 1 mg DAILY LISSET Administration Dexmedetomidine HCl 400 mcg/ 100 mls @ 0 mls/hr 12/16/20 23:00 12/18/20 06:41 Sodium Chloride IVPB 100 mls INF LISSET Administration Protocol Per Protocol Dextrose/Lactated Ringer's 1,000 mls @ 200 mls/hr 12/17/20 02:15 12/18/20 05:00 D5 Lr IV 1,000 mls .Q5H LISSET Administration Insulin Human Regular 100 101 mls @ 0 mls/hr 12/17/20 13:30 12/17/20 14:25 units/ Sodium Chloride IVPB 101 mls INF LISSET Administration Protocol Titrate Iron/Minerals/Multivitamins 1 tab 12/17/20 09:00 12/18/20 09:15 Multivitamin W/ Minerals 1 Tab PO 1 tab DAILY LISSET Administration Lorazepam 2 mg 12/16/20 22:08 12/16/20 22:33 Lorazepam 2 Mg/Ml Vial SLOW IVP 2 mg Q20M PRN Administration tremors, tachycardia, CIWA > 8 Magnesium Oxide 400 mg 12/17/20 09:00 12/18/20 09:16 Magnesium Oxide 400 Mg Tab PO 400 mg DAILY LISSET Administration Ondansetron HCl 8 mg 12/17/20 10:21 12/17/20 10:27 Ondansetron Pf 4 Mg/2 Ml Vial IVP 8 mg Q6H PRN Administration Nausea/Vomiting Pantoprazole Sodium 40 mg 12/17/20 21:00 12/18/20 09:17 Pantoprazole 40 Mg Vial IVP 40 mg Q12HR LISSET Administration Thiamine HCl 100 mg 12/17/20 09:00 12/18/20 09:16 Thiamine 100 Mg Tab PO 100 mg DAILY LISSET Administration Zinc Sulfate 220 mg 12/18/20 09:00 12/18/20 09:17 Zinc Sulfate 220 Mg Cap PO 220 mg DAILY LISSET Administration Hospitalist Exam Vitals: Vital Signs (12 hours) Temp Pulse Ox 12/18/20 06:25 96 12/18/20 06:00 98.5 F 12/18/20 02:01 97 12/18/20 00:00 98.5 F 12/17/20 22:10 97 Weight Admit Weight 178 lb 9.12 oz Weight 178 lb 9.191 oz Most Recent Monitor Data Heart Rate from ECG 90 NIBP 93/57 NIBP BP-Mean 69 Respiration from ECG 25 SpO2 94 General Appearance: NAD, awake alert Eye: PERRL, anicteric sclera ENT: normocephalic atraumatic, no oropharyngeal lesions Neck: supple, symmetric, no JVD, no thyromegaly, no lymphadenopathy Heart: RRR, no murmur, no gallops, no rubs, normal peripheral pulses Heart - other findings: S1, S2 Respiratory - other findings: diminished in bases, scattered rhonchi Gastrointestinal: soft, non-distended, normal bowel sounds, no palpable masses Gastrointestinal - other findings: mild TTP in mid-epigastric region Extremities: no cyanosis, no clubbing, no edema Skin: normal turgor, no lesions Neurological: cranial nerve grossly intact, no new deficit Musculoskeletal: normal tone, normal strength, no muscle wasting Psychiatric: normal affect, A&O x 3 Hosp A/P (1) Acute pancreatitis Code(s): K85.90 - ACUTE PANCREATITIS WITHOUT NECROSIS OR INFECTION, UNSP Status: Acute Plan: Likely due to hypertriglyceridemia and ETOH abuse, stabilizing with supportive mgmt, pain control with Morphine Sulfate, IVF's, serial abd exams, Zosyn empirically (2) Hypertriglyceridemia Code(s): E78.1 - PURE HYPERGLYCERIDEMIA Status: Acute Plan: Improved with Insulin gtt, Tricor, continue mgmt, serial monitoring, low fat diet when tolerating po intake (3) COVID-19 Code(s): U07.1 - COVID-19 Status: Acute Plan: Continue Dexamethasone/Vit C/Zinc/D3/high-flow O2, isolation protocol (4) Sepsis Code(s): A41.9 - SEPSIS, UNSPECIFIED ORGANISM Status: Acute Plan: Likely meeting criteria but main component of severe pancreatitis, supportive mgmt, Zosyn empirically (5) Thrombocytopenia Code(s): D69.6 - THROMBOCYTOPENIA, UNSPECIFIED Status: Acute Plan: Stable currently, Likely due to ETOH abuse/pancreatitis, avoid NSAIDs/anticoagulation, serial monitoring (6) Hyponatremia Code(s): E87.1 - HYPO-OSMOLALITY AND HYPONATREMIA Status: Acute Plan: Improved, multifactorial including pancreatitis/ETOH abuse (7) Alcohol abuse Code(s): F10.10 - ALCOHOL ABUSE, UNCOMPLICATED Status: Acute Plan: Cessation resources, ASE protocol, Precedex PRN, MVI/Thiamine/Folate - Plan continue antibiotics, rn social services, respiratory therapy Continue critical support Continue D5LR IVF's D/C Insulin gtt Dexamethasone 6mg IV daily Add Vit C/D3/Zinc Continue Zosyn Appreciate GI/Pulmonary assistance Clear liquids as tolerated AM Lab: CMP, CBC, Lipase, Mg++ Serial Triglycerides
--- NOTE | 2020-12-18 09:52 | PRG ---
DATE OF SERVICE: 12/18/2020 SUBJECTIVE: He appears somewhat confused, especially compared to yesterday. He continues on a Precedex drip. OBJECTIVE: VITAL SIGNS: His temperature 98.5, pulse 90, blood pressure 93/57. He has been taking some liquids and total intake was 7831, output 1110. His urine output measured at 660, but I would guess higher than that. HEENT: Unremarkable. NECK: No JVD. LUNGS: He has inspiratory crackles bilaterally. CARDIOVASCULAR: S1, S2. Slightly tachycardic. ABDOMEN: Soft, mildly tender to palpation below his umbilicus. EXTREMITIES: No clubbing, cyanosis, or edema. LABORATORY DATA: Hemoglobin 13, hematocrit 39.1, and platelet count 29. Sodium 131, potassium 3.6, chloride 105, CO2 of 18, BUN 4, creatinine 0.6, glucose 127, calcium 5.6, albumin 2.1. Triglycerides down to 609. ASSESSMENT: 1. COVID-19 infection with probable component of some pneumonia given his hypoxemia. 2. Triglyceride/alcohol-induced pancreatitis. 3. Alcoholism with alcohol withdrawal. 4. Thrombocytopenia, probably secondary to alcoholism. 5. Hyponatremia at the time of admission, probably secondary to beer drinking. PLAN: 1. Continue ICU care. Wean high-flow oxygen as tolerated. I would not be surprised at all that we see his pulmonary status worsen with time as I do not know where we are as far as days with COVID infection. 2. Continue Precedex for alcohol withdrawal symptoms. 3. He was started on steroids yesterday by the Hospitalist Group. 4. Currently on insulin infusion I think for treatment of the hypertriglyceridemia. He could probably wean off that today and placed on sliding scale insulin. We will continue to follow with you. Job ID: [id number]
[2020-12-18] MEDS: Ondansetron PF 4 MG/2 ML Vial IVP PRN (10:17)
--- NOTE | 2020-12-18 11:33 | PRG ---
DATE OF SERVICE: 12/18/2020 SUBJECTIVE: Mr. Shannon has remains in the ICU on high-flow oxygen by nasal cannula, oxygen saturations at 90%. He is having issues with shortness of breath and cough, feels like he has a lot of drainage in the throat. All of the coughing is making him gag and he has been spitting into a basin. He does endorse some nausea with this, but not actually having emesis. No diarrhea. He actually denies any abdominal pain. He has been tolerating some clear liquids sparingly. OBJECTIVE: VITAL SIGNS: Temperature 98.5, pulse 90, blood pressure is 93/57, 90% oxygen saturation on high-flow nasal cannula. GENERAL: Sitting up in the edge of the bed, having some coughing and mild respiratory distress, occasionally spitting into a basin. HEART: Regular rate and rhythm. LUNGS: He is tachypneic. Soft crackles at the bases. No wheezing. ABDOMEN: Bowel sounds are present. Soft, nontender to palpation. EXTREMITIES: No peripheral edema. LABORATORY STUDIES: Hemoglobin 13.3 and platelets 29, this is from labs performed yesterday. WBC was 12.0. Sodium 131, potassium 3.6, BUN 4, creatinine 0.66, glucose 118, calcium 5.6, total bilirubin up to 4.1, alkaline phosphatase 93, AST is 107, ALT 61, albumin 2.1. Triglycerides way down to 609. Lipase was 502 yesterday. Plasma alcohol level is 54 on admission. COVID PCR positive. IMAGING DATA: Chest x-ray from yesterday showed patchy bilateral ground-glass infiltrates. ASSESSMENT AND PLAN: 1. Acute pancreatitis. 2. Hypertriglyceridemia. 3. Alcohol abuse. I agree with Dr. Mattson that the pancreatitis likely secondary to the hypertriglyceridemia, though alcohol toxicity may have also been a factor. There is no evidence of biliary etiology with normal ultrasound, normal common bile duct, despite the elevated LFTs. Triglycerides have come down well with insulin drip and I think this can be transitioned to sliding scale insulin. He has already been started on a fibrate. He is going to need to abstain from alcohol going forward following resolution of this acute illness. I would keep his diet on clear liquids today given the issues with gagging, but I think this is more secondary to his COVID rather than the pancreatitis. 4. COVID pneumonia. He is on high-flow oxygen. Pulmonary following. 5. Elevated LFTs. Total bilirubin up to 4.1, but transaminases stable today could be secondary to alcohol effect versus the COVID infection itself. Again, no evidence concerning for biliary pancreatitis. Job ID: [id number]
[2020-12-18] MEDS: Cholecalciferol 1,000 UNITS (25 MCG) TAB PO SCH (20:17)
[2020-12-19 01:05] VITALS: TEMP 97.4
== END 2020-12-19 07:20 | disposition home or self-care (01) | DRG 871 ==
LOC: ERS 12:03 → UNDOADMIN 16:13 → CCU 16:13
PROVIDERS: ADMIT Internal Medicine; ATTEND Family Medicine
PROC: 8E0ZXY6 Isolation (ICD-10-PCS; principal; 2020-12-16)
DX: A41.9 Sepsis, unspecified organism (principal); U07.1 COVID-19; J12.82 Pneumonia due to coronavirus disease 2019; K85.20 Alcohol induced acute pancreatitis without necrosis or infection; E87.2 Acidosis; E87.1 Hypo-osmolality and hyponatremia; F10.239 Alcohol dependence with withdrawal, unspecified; E78.1 Pure hyperglyceridemia; F10.229 Alcohol dependence with intoxication, unspecified; Y90.2 Blood alcohol level of 40-59 mg/100 ml; I45.81 Long QT syndrome; D69.59 Other secondary thrombocytopenia; E16.2 Hypoglycemia, unspecified
CPT/HCPCS: 0240U; 36415; 36416; 36600; 71045; 74177; 76705; 80053; 80061; 80307; 81003; 81015; 82330; 82803; 82805; 83605; 83690; 83735; 84478; 85025; 87040; 93005; 96365; 96366; 96367; 96374; 96375; 96376; C9113; J1100; J1170; J1815; J2001; J2060; J2270; J2405; J2543; J3370; J3411; J3475; J3480; J3490; J7050; Q9967